=== PATIENT | male | born 1950 | race Hispanic/Latino ===

== ENCOUNTER 2017-12-06 09:26 | Emergency (ER) | payer MEDICARE ==
[2017-12-06] MEDS ORDERED: KETOROLAC TROMETHAMINE 10 MG TAB PO PRN (10:30)
--- NOTE | 2017-12-06 11:19 | Diagnostic Imaging Report ---
PROCEDURE:L-SPINE COMPLETE COMPARISON:None. INDICATIONS:LOW BACK PAIN FROM FALL FINDINGS: There are 5 [id number] lumbar vertebral bodies. There is 1.1 cm anterolisthesis of L5 over S1, likely degenerative in the presence of associated disc space narrowing, marginal osteophytosis, and facet arthropathy. The degenerative disc changes at L3-L4 and L4-L5 are also noted. Vertebral body heights are well-maintained. No pars interarticularis defects are identified on the oblique radiographs. Atherosclerotic calcification of the abdominal aorta. Sacroiliac joints are maintained. The sacral body is obscured by rectal gas and stool; however, the sacral foramina appear intact superiorly. CONCLUSION: 1.1 cm anterolisthesis of L5 over S1 is likely chronic and related to degenerative facet arthrosis and disc disease. MRI of the lumbar spine without contrast may be obtained if there is strong clinical concern for superimposed acute injury. Degenerative disc changes and facet arthropathy elsewhere in the lumbar spine as above. Dictated by: James Ram M.D. on 12/06/2017 at 11:24 Electronically approved by: James Ram M.D. on 12/06/2017 at 11:24
[2017-12-06] MEDS ORDERED: KETOROLAC TROMETHAMINE 60 MG/2 ML VIAL IM ONE (11:30)
--- NOTE | 2017-12-06 12:34 | Diagnostic Imaging Report ---
PROCEDURE:X-RAY UNILATERAL RIBS WITH CHEST X-RAY COMPARISON:None. INDICATIONS:RIGHT SIDE RIB PAIN FROM FALL FINDINGS: The lungs are well-inflated. No focal consolidation, pleural effusion, or pneumothorax. Coarse prominence of the reticular markings predominantly within the lung bases. Normal heart size. No overt pulmonary edema. No displaced right rib fracture or pneumothorax. Calcifications in the expected region of the carotid bulbs. CONCLUSION: no displaced right rib fracture or pneumothorax. No acute cardiopulmonary abnormality. Basal predominant coarse reticular opacities suggestive of interstitial lung disease. Dictated by: James Ram M.D. on 12/06/2017 at 12:39 Electronically approved by: James Ram M.D. on 12/06/2017 at 12:39
[2017-12-06 12:58] VITALS: BP 158/78
== END 2017-12-06 13:05 | disposition home or self-care (01) ==
LOC: ER 09:26
DX: S30.811A Abrasion of abdominal wall, initial encounter (principal); S30.1XXA Contusion of abdominal wall, initial encounter; W01.198A Fall on same level from slipping, tripping and stumbling with subsequent striking against other object, initial encounter; Y92.008 Other place in unspecified non-institutional (private) residence as the place of occurrence of the external cause
CPT/HCPCS: 71101; 72110; 99283; J1885